=== PATIENT | female | born 1935 | race Caucasian/White ===

== ENCOUNTER → 2019-11-13 16:57 | Outpatient (CLI) | payer MEDICARE, SELFPAY ==
--- NOTE | 2019-11-13 17:14 | XR_ITS ---
PROCEDURE: XR KNEE LT 4V CLINICAL INDICATION: LT KNEE PAIN COMPARISON: No exams were available for comparison FINDINGS: No fracture or dislocation. No lytic or blastic change. There is normal mineralization. There are moderate to severe osteoarthritic changes involving the lateral compartment. Osteophytes are present at the intercondylar region of the distal femur and at the interspinous region of the proximal tibia and at the posterior patella. A small calcification is present superior to the patella and may be due to a loose body measuring 7 mm. On the lateral view there is a calcification along the posterior aspect of the knee joint which could be due to loose body or fabella. Other findings:None. IMPRESSION: Moderate to severe osteoarthritic changes with possible loose body in the suprapatellar region and in the posterior knee joint Dictated by: Phil Villela MD 11/13/2019 19:01 Phil Villela MD in [place] 11/13/2019 19:01
== END ==
PROVIDERS: PCP Physician Assistant; Visit Provider Physician Assistant
DX: M25.562 Pain in left knee (principal)
CPT/HCPCS: 73564

== ENCOUNTER → 2019-12-03 12:45 | Outpatient (CLI) | payer MEDICARE, SELFPAY ==
--- NOTE | 2019-12-03 12:57 | XR_ITS ---
PROCEDURE: XR FOOT WT BEARING LT 3V CLINICAL INDICATION: pain COMPARISON: CR FTR3 FOOT-RT-3 VIEWS from 12/11/2016 CR FTL3 FOOT-LT-3 VIEWS from 12/11/2016 FINDINGS: Moderate osteoarthritic changes are present at the 1st MTP joint with bony hypertrophy. No fracture or dislocation. There is some medial angulation of the distal aspect of the proximal phalanx of the 4th toe with osteoarthritis of the PIP joint. Overall no significant change. IMPRESSION: Osteoarthritis. No change with no acute finding Dictated by: Phil Villela MD 12/03/2019 15:49 Phil Villela MD in [facility] 12/03/2019 15:49
--- NOTE | 2019-12-03 12:57 | XR_ITS ---
PROCEDURE: XR FOOT WT BEARING RT 3V CLINICAL INDICATION: pain COMPARISON: CR FTR3 FOOT-RT-3 VIEWS from 12/11/2016 CR FTL3 FOOT-LT-3 VIEWS from 12/11/2016 FINDINGS: Severe osteoarthritis involves the 1st metatarsophalangeal joint with bony hypertrophy at the distal aspect of the 1st metatarsal. No fracture or dislocation. No lytic or blastic change. IMPRESSION: Severe osteoarthritis with bony hypertrophy 1st MTP joint Dictated by: Phil Villela MD 12/03/2019 15:48 Phil Villela MD in [facility] 12/03/2019 15:48
== END ==
PROVIDERS: PCP Physician Assistant; Visit Provider Podiatrist
DX: M79.672 Pain in left foot (principal); M79.671 Pain in right foot
CPT/HCPCS: 73630

== ENCOUNTER → 2019-12-23 10:01 | Outpatient (CLI) | payer MEDICARE, SELFPAY ==
--- NOTE | 2019-12-23 10:07 | XR_ITS ---
PROCEDURE: XR HIP RT 2-3V W/PELVIS CLINICAL INDICATION: right hip pain COMPARISON: CR XR HIP LT 2-3V W/PELVIS from 12/23/2019 FINDINGS: There are moderate to severe osteoarthritic changes of the right hip with loss of joint space, osteosclerosis, and osteophyte formation. No fracture or dislocation. There are degenerative changes in the lower lumbar spine. IMPRESSION: Osteoarthritis Dictated by: Phil Villela MD 12/23/2019 14:38 Phil Villela MD in [facility] 12/23/2019 14:38
--- NOTE | 2019-12-23 10:07 | XR_ITS ---
PROCEDURE: XR HIP LT 2-3V W/PELVIS CLINICAL INDICATION: left hip pain COMPARISON: No exams were available for comparison FINDINGS: There has been prior pinning of the left proximal femur with [address]. There is an old left femoral neck fracture. One of the pins appear to traverse the soft tissues posterior to the femoral neck as seen on the cross-table view. There are mild osteoarthritic changes of the left hip. IMPRESSION: Prior pinning of the left hip with an old femoral neck fracture. One of the pins lies posterior to the femoral neck. The proximal aspect of that pin is in the region of the greater trochanter and the distal aspect is in the region of the posterior aspect of the femoral head. Osteoarthritis of the left hip. Dictated by: Phil Villela MD 12/23/2019 14:28 Phil Villela MD in [facility] 12/23/2019 14:28
== END ==
PROVIDERS: PCP Physician Assistant; Visit Provider Orthopaedic Surgery
DX: M25.551 Pain in right hip (principal); M25.552 Pain in left hip
CPT/HCPCS: 73502

== ENCOUNTER → 2020-01-28 14:28 | Outpatient (POV) | payer MEDICARE, SELFPAY ==
[2020-01-28 14:46] VITALS: BP 155/88; PULSE 71; RESP 18; TEMP 36.4; O2SAT 98; BMI 19.8
--- NOTE | 2020-01-28 16:50 | HMH.PMCON ---
Assessment and Plan (1) Low back pain Status: Chronic Category: Medical Code(s): M54.5 - Low back pain (2) Lumbar radiculopathy Status: Chronic Category: Medical Code(s): M54.16 - Radiculopathy, lumbar region (3) Neck pain Status: Chronic Category: Medical Code(s): M54.2 - Cervicalgia (4) Mid back pain Status: Acute Category: Medical Code(s): M54.9 - Dorsalgia, unspecified - Assessment and plan all Dx Assessment and Plan for all problems:: I did discuss options with the patient and her daughter today. Unfortunately, the patient understands we will not be able to provide oral medication management at this time. I did discuss medication management with Dr. ALYCE Perea and he does not feel it is appropriate to provide oral medications and no interventional therapies at this time. The patient is not interested in interventional therapies. She does feel that she will follow up with her primary care provider and continue medications there at this time. She has been advised if she does decide that she would like to perform interventional therapy such as injections or implanted devices, she can contact us in the future. The patient and I specifically discussed risk factors for COVID19. These risks include, but are not limited to age greater than 60, heart or lung disease, diabetes, immunosuppression, and travel. We also discussed NSAIDs may worsen COVID19 infection or symptoms. Patient should not use NSAIDs to treat COVID19 signs or symptoms. Patient was also informed that any type of corticosteroid of any form (oral or injection) will decrease the patient's immune system response and may increase the likelihood of COVID19 infection [address] symptoms[address] Perez has reviewed this note and agrees with this plan of care. This note was dictated using voice recognition software and make contain errors or omissions. HPI - Data of Consult Patient: new to practice Consult date: 01/28/20 Requesting Physician: Zahra Cuellar APRN Primary Care Provider: Milton Lynn MD - Consult Narrative Reason for consult: Medication management History of present illness: Ms. Adames is a 84 year old female who presents today for consultation for chronic pain. She says that she has pain from her neck to her low back and into her legs. Patient has been managed with oral medications for some time. She says that she has recently changed primary care providers from [facility] to [facility]. Patient is being managed with hydrocodone, however, says that she can only receive the medication once a month rather than every 3 months. As result, she was referred to our clinic for possible medication management. She does rate her pain a 6 out of 10 today. She says she is not interested in injective therapy or and interventional therapies. Patient says she has tried and failed conservative therapies in the past which include physical therapy and home stretching. Oral medications are the only thing that have given her any pain relief to this point. CC: Zahra Cuellar APRN [facility] History I have reviewed the patient's past medical history: Yes Medical History: Reports:: Anxiety, Hyperlipidemia, Hypertension Denies:: Cancer, Diabetes Mellitus Type 1, Diabetes Mellitus Type 2, MRSA *Have you ever received a pneumonia vaccine?: Yes *Have you received a flu vaccine this season?: Yes Other Medical History: Reports: Arthritis Laterality Cases: Left: Arthroscopy Hip, Bilateral: Myringotomy (Ear Tubes) Other Surgeries: Yes: Amputation: No Fractures: No - *Social History Smoking Status: Never smoker Alcohol Intake: never *Occupational Status:: retired Housing: house Household Members: other *Travel in the last 8 weeks: None - Psychiatric History Pschychiatric History:: Reports:: Anxiety Family Hx:: Unable to obtain Review of Systems - Review of Systems Review of Systems General: No recent weight changes, no fever,
== END ==
PROVIDERS: PCP Emergency Medicine; Visit Provider Clinical Nurse Specialist Family Health
DX: M54.5 Low back pain (principal); M54.16 Radiculopathy, lumbar region; M54.2 Cervicalgia; M54.6 Pain in thoracic spine
CPT/HCPCS: 99202

== ENCOUNTER → 2020-02-27 16:17 | Outpatient (CLI) | payer MEDICARE, SELFPAY ==
[2020-02-27 17:00] LABS: Microscopic, Urine URINE MICROSCOPIC (MICROSCOPIC)
[2020-02-27 17:06] LABS: Appearance,Urine CLEAR (Clear); Bilirubin,Urine Negative (Negative); Blood, Urine 2+ (Negative); Color,Urine YELLOW (Yellow); Glucose,Urine (UA) Negative (Negative); Ketones,Urine Negative (Negative); Leukocyte Esterase,Urine TRACE (Negative); Nitrate,Urine Negative (Negative); Protein,Urine Negative (Negative); Specific Gravity, Urine 1.025 (1.005-1.030); Urobilinogen,Urine 0.2 EU/dl (0.2)
[2020-02-27 17:07] LABS: Chloride 108 mmol/L (98-107); Potassium 4.1 mmoL/L (3.5-5.1); Sodium 139 mmol/L (136-145)
[2020-02-27 17:08] LABS: Basophils # 0.1 K/mm3 (0-0.2); Basophils % 0.7 % (0.1-2.0); Eosinophils # 0.1 K/mm3 (0.0-0.4); Eosinophils % 1.4 % (0.1-12.0); Hematocrit 39.3 % (37.0-47.0); Hemoglobin 12.6 g/dL (12.2-16.2); Lymphocytes # 2.7 K/mm3 (0.7-4.5); Lymphocytes % 27.1 % (10-50); Mean Corpuscular HGB Conc 32.2 g/dL (31.8-35.4); Mean Corpuscular Hemoglobin 31.2 pg (27.0-31.2); Mean Corpuscular Volume 96.8 fl (81-99); Mean Platelet Volume 7.7 fl (7.4-10.4); Monocytes # 0.6 K/mm3 (0.1-1.0); Monocytes % 6.1 % (1.7-9.3); Neutrophils # 6.4 K/mm3 (1.8-7.8); Neutrophils % 64.8 % (37.0-80.0); Platelet Count 303 K/mm3 (142-424); Red Blood Count 4.06 M/mm3 (4.20-5.40); White Blood Count 9.9 K/mm3 (4.8-10.8)
[2020-02-27 17:09] LABS: Alanine Aminotransferase 16 U/L (12-78); Aspartate Amino Transferase 27 U/L (14-36); Blood Urea Nitrogen 26 mg/dl (7-17); Estimated Glomerular Filt Rate 69 ml/min (>60); GFR (African American) 83 ML/MIN (>60)
[2020-02-27 17:10] LABS: Albumin Level 3.7 g/dl (3.5-5.0); Albumin/Globulin Ratio 1.2 (1.1-1.8); Alkaline Phosphatase 76 U/L (38-126); Anion Gap 9.1 mEq/L (5-15); Bilirubin,Total 0.4 mg/dl (0.2-1.3); Calcium 9.2 mg/dl (8.4-10.2); Carbon Dioxide 26 mmol/L (22.0-30.0); Glucose 87 mg/dl (74-100); Total Protein,Serum 6.7 g/dl (6.3-8.2)
[2020-02-27 17:15] LABS: Amorphous Sediment,Urine Trace /lpf
[2020-02-27 17:25] LABS: Coronavirus 19 IgG Antibody Negative (Negative); Coronavirus 19 IgM Antibody Negative (Negative)
== END ==
PROVIDERS: PCP Physician Assistant; Visit Provider Surgery
DX: K41.90 Unilateral femoral hernia, without obstruction or gangrene, not specified as recurrent (principal); Z01.818 Encounter for other preprocedural examination; Z03.818 Encounter for observation for suspected exposure to other biological agents ruled out
CPT/HCPCS: 36415; 80053; 81001; 85025; 86328

== ENCOUNTER 2020-02-29 06:11 | Day surgery (SDC) | payer MEDICARE, SELFPAY ==
[2020-02-29] VITALS (17 sets, daily range): BP systolic 145–201; BP diastolic 63–86; PULSE 60–74; RESP 14–18; TEMP 36.4–43; O2SAT 93–98; BMI 19.8
--- NOTE | 2020-02-29 07:46 | HMH.ANESCL ---
[facility] Anesthesia Checklist - Patient Identification Patient Identification: Arm Band, Verbal (Name & ) - Structural Data Admitted From: Home Planned Operative Procedure/s: Left open femoral hernia repair Consent for Planned Operative Procedure(s) Verified: Yes Verified Documents: Surgical Consent, History and Physical - NPO Status Verified Time NPO: 22:00 - Chart Verification Results Verified: CBC, BMP, UA - Additional verifications Patient : No Anesthesia Reactions: No Hx Blood Transfusions: No Blood Transfusion Reaction: No - Airway Assessment C-Spine Mobility Assessed: Yes (MP 1, micrognathia, crowns, limited neck ROM, TMD 3) TMJ Mobility Assessed: Yes Dentition: Good Dentition - Neurological Assessment Level of Consciousness: Awake, Alert, Appropriate, Follows Commands Hx Seizures: No Numbness or tingling in extremities: No - Anesthesia Plan Anesthesia Risk discussed: Yes Anesthesia Plan: Verified ASA Class: II Anesthesia Type: General [facility] History I have reviewed the patient's past medical history: Yes Medical History: Reports:: Anxiety, Hyperlipidemia, Hypertension Denies:: Cancer, Diabetes Mellitus Type 1, Diabetes Mellitus Type 2, Internal Pacemaker, MRSA, Seizures *Have you ever received a pneumonia vaccine?: No *Have you received a flu vaccine this season?: No Other Medical History: Reports: Arthritis. Denies: Blood Transfusion Reaction Anesthesia experience/problems:: None Laterality Cases: Left: Arthroscopy Hip, Bilateral: Myringotomy (Ear Tubes) Other Surgeries: Yes: . No: Pacemaker Amputation: No Fractures: No - *Social History Last grade of school completed: Some college Smoking Status: Current every day smoker Tobacco Type: cigarettes # Packs/Day (cigarettes): 1 Alcohol Intake: never Substance Use Type: denies use *Occupational Status:: retired Housing: house Household Members: spouse *Travel in the last 8 weeks: None - Psychiatric History Pschychiatric History:: Reports:: Anxiety Family Hx:: Unable to obtain
--- NOTE | 2020-02-29 08:19 | P.OP_ITS ---
Date of procedure: 02/29/20 Pre-op Diagnosis:: Left femoral hernia Post-op Diagnosis:: Direct left inguinal hernia with inferior/medial projection Procedure performed:: Open left inguinal hernia repair Surgeon:: Matias Ling MD CORPORATE LEGAL ASSISTANT:: Romario Capps Anesthesia: GETA Estimated blood loss (mL): 10 Operative findings:: Large complex direct defect with significant inferior/medial projection's No definitive femoral defect Operative note:: After informed consent was obtained the patient was taken to the operating room and placed in the supine position. General anesthesia was induced and her abdomen/groin was prepped and draped in a sterile fashion. After infiltration local anesthetic an oblique left groin incision was made. The deeper subcutaneous tissue was dissected sharply through Trev's fascia to the level of the external aponeurosis. Careful evaluation over the margin of the inguinal ligament revealed no definitive femoral defect; however, a defect that had inferior and medial projection through the external ring was noted. The external aponeurosis was sharply opened to the level of the external ring. The patient's round ligament was essentially obliterated. A large complex direct defect was encountered. An extra-large PerFix plug was secured in position within the defect with 2-0 Ethibond. The PerFix overlay was then secured to the shelving edge inferiorly and fascial margin superiorly utilizing 2-0 Ethibond. The external aponeurosis was reapproximated with running Vicryl. Trev's fas nel was reapproximated in a similar manner. Skin was then closed with 4-0 Monocryl in a running subcuticular fashion. Steri-Strips were applied. The patient's anesthetic agents were reversed and she was extubated prior to transfer to recovery. Condition: stable Disposition: PACU Specimens:: None Complications:: No immediate
--- NOTE | 2020-02-29 08:29 | P.PN_ITS ---
[facility] Anesthesia Record Part I Intake, IV Amount: 500 Estimated blood loss (mL): 5 Urine output (mL): 75 Blood Products used (#): none Blood Pressure: 190/80 SaO2: 95 Pulse Rate: 74 Respiratory Rate: 14 Temperature: 97.6 F Patient is:: Awake, Stable Stable to PACU at:: 08:26
--- NOTE | 2020-02-29 09:43 | ECG_ITS ---
APPROVED REPORT Exam: Resting ECG HR:60 bpm ECG Measurements Heart Rate 60 AXES NM 156 P 71 QRSd 76 QRS -49 QT 428 T 45 QTc 428 Conclusion Normal sinus rhythm Left anterior fascicular block Abnormal ECG Electronically signed by : Himanshu Anthony, 03/01/2020 17:29:57
--- NOTE | 2020-02-29 10:35 | PC.NURSE ---
Medication administered per Jorge order to give 10mg Hydralazine IV
--- NOTE | 2020-02-29 10:39 | PC.NURSE ---
Pt complaing of chest pain, MAURI Patel aware, EKG ordered
--- NOTE | 2020-02-29 11:19 | PC.NURSE ---
EKG completed, MAURI Patel states EKG is clear
--- NOTE | 2020-02-29 11:20 | PC.NURSE ---
Pt states that chest pain has subsided
--- NOTE | 2020-02-29 11:46 | HMH.ANESII ---
[facility] Anesthesia Record Part II Discharge Time: 08:56 Destination: Surgical Day Care (OP Surgery) PACU nurse assessment reviewed?: Yes Patient Condition:: Fair Anesthesia Complications:: None Swallowing reflex intact?: Yes Cyanosis?: No Blood Pressure: 201/80 Pulse Rate: 60 Temperature: 97.6 F Mental Status: Alert & Oriented Pain level:: 0 Nausea and/or vomitting:: None Intake, IV Amount: 0
[2020-02-29 12:54] LABS: Microscopic,Cath URINE MICROSCOPIC (MICROSCOPIC)
[2020-02-29 15:32] LABS: Appearance,Urine/Cath CLEAR (Clear); Bilirubin,Cath Negative (Negative); Blood, Urine/Cath 1+ (Negative); Color,Urine/Cath YELLOW (Yellow); Glucose,Urine/Cath (UA) Negative (Negative); Ketones,Urine/Cath Negative (Negative); Leukocyte Esterase,Cath Negative (Negative); Nitrate,Cath Negative (Negative); PH,Urine/Cath 6.5 (5.0-8.5); Protein,Urine/Cath Negative (Negative); Specific Gravity, Urine/Cath 1.015 (1.005-1.030); Urobilinogen,Cath 0.2 EU/dl (0.2)
[2020-02-29 16:13] LABS: Squamous Epithelial Ur./Cath Occasional #/hpf (0-5)
== END 2020-02-29 10:55 | disposition home or self-care (01) ==
LOC: OR 06:12
PROVIDERS: PCP Physician Assistant; Visit Provider Surgery
PROC: (CPT 49550; principal; 2020-02-29 07:30)
DX: K41.90 Unilateral femoral hernia, without obstruction or gangrene, not specified as recurrent (principal); F41.9 Anxiety disorder, unspecified; E78.5 Hyperlipidemia, unspecified; I10 Essential (primary) hypertension; M19.90 Unspecified osteoarthritis, unspecified site; Z72.0 Tobacco use; Z88.6 Allergy status to analgesic agent; Z79.82 Long term (current) use of aspirin; Z79.899 Other long term (current) drug therapy
CPT/HCPCS: 49550; 81001; 93005; 96374; J2405; J2710

== ENCOUNTER 2023-03-24 13:40 | Emergency (ER) | payer MEDICARE, SELFPAY ==
[2023-03-24 13:42] VITALS: BP 141/55; PULSE 72; RESP 20; TEMP 36.7; O2SAT 95; BMI 19.5
--- NOTE | 2023-03-24 14:38 | CT_ITS ---
PROCEDURE INFORMATION: Exam: CT Abdomen And Pelvis With Contrast Exam date and time: 03/24/2023 3:15 PM Age: 88 years old Clinical indication: Other: Pain and distention, ascites per US; Additional info: Ascites bedside US, 3 weeks abd pain, distention TECHNIQUE: Imaging protocol: Computed tomography of the abdomen and pelvis with contrast. Radiation optimization: All CT scans at this facility use at least one of these dose optimization techniques: automated exposure control; mA and/or kV adjustment per patient size (includes targeted exams where dose is matched to clinical indication); or iterative reconstruction. Contrast material: ISOVUE; Contrast volume: 75 ml; Contrast route: IV; COMPARISON: CR XR HIP LT 2-3V W/PELVIS 12/23/2019 10:22 AM FINDINGS: Lungs: Included lung bases demonstrate no consolidation. Subsegmental atelectasis in the left lung base. Heart: Mild left atrial enlargement. No pericardial effusion. Mild coronary artery calcifications. Diaphragm: Small sliding-type hiatal hernia. Mild lower circumferential esophageal wall thickening. Liver: Liver is normal. No lesions. Gallbladder and bile ducts: Gallbladder is normal. No calcified stones. No ductal dilatation. Pancreas: Moderately atrophic pancreas. Two 5 mm hypodensities at the pancreatic head, most likely small cystic lesions. No ductal dilatation. Spleen: Spleen is normal. Adrenal glands: No adrenal mass. Kidneys and ureters: Left renal cysts measuring as large as 1.1 cm, no follow-up imaging indicated. No hydronephrosis. No renal stones. Stomach and bowel: No bowel obstruction. Stomach is nondistended with apparent wall thickening. Sigmoid colonic diverticulosis. No obvious diverticulitis given extensive omental caking and ascites. Colon is nondistended with mild generalized wall thickening. Appendix: Not definitely seen. Intraperitoneal space: Extensive omental caking. Areas of peritoneal nodularity, thickening, and enhancement. Moderate to large volume ascites. No free air. Vasculature: Fairly diffuse aortoiliac atherosclerotic disease. No AAA. Lymph nodes: Enlarged periaortic lymph node measuring 1.5 cm in short axis dimension. Right lower paraesophageal 1 cm lymph node. Enlarged 1.2 cm left inguinal lymph node. Few prominent subcentimeter right cardiophrenic lymph nodes. Urinary bladder: Urinary bladder is unremarkable for degree of distention. Reproductive: Right ovary appears mildly enlarged although suboptimally evaluated with approximately 1 cm cystic lesion. Uterus is grossly unremarkable. Bones/joints: Osteopenia. No acute fracture. Thoracolumbar levoscoliosis. Multilevel degenerative changes of the included spine. Postsurgical changes of the proximal left femur. Advanced degenerative changes of the right hip. Soft tissues: Anasarca. IMPRESSION: 1. Extensive omental caking and peritoneal soft tissue implants most consistent with metastatic disease. 2. Moderate to large volume ascites, possible malignant ascites, infectious/inflammatory component not excluded. 3. No bowel obstruction. Colonic wall thickening which may be secondary to hypoproteinemia and/or non-specific colitis, no obvious mass although evaluation is limited and mass not excluded. 4. Stomach is nondistended with apparent wall thickening. Small hiatal hernia with lower esophageal wall thickening. Esophageal and stomach wall thickening may be secondary to degree of distention or esophagitis/gastritis, lesions can not be excluded, endoscopy can be obtained as clinically indicated. 5. Right ovary appears mildly enlarged although suboptimally evaluated with 1 cm cystic lesion, can correlate with pelvic ultrasound as indicated. 6. Adenopathy as above. 7. Other chronic and incidental findings as detailed above. COMMENTS: Consistent with the [employer]'s Incidental Findings Committee white paper (J Am Josselin Radiol 2018): Any incidental renal lesion less than 1 cm or classified as too small to characterize, or any incidental cystic renal lesion characterized as simple-appearing, is likely benign. No follow-up imaging is recommended for these lesions per consensus recommendations based on imaging criteria. THIS REPORT CONTAINS FINDINGS THAT MAY BE CRITICAL TO PATIENT CARE. The findings were verbally communicated via telephone conference at 4:25 PM EST on 03/24/[address] Alvarez. The findings were acknowledged and understood.
--- NOTE | 2023-03-24 14:39 | ED_ITS ---
Discharge Plan Disposition Patient Disposition: Home, Self-Care Prescriptions Prescriptions: New ondansetron 4 mg tablet,disintegrating 4 mg PO Q8H PRN (Reason: nausea and vomiting) 4 Days Qty: 21 0RF oxycodone 5 mg tablet 5 mg PO TID PRN (Reason: pain) Qty: 12 0RF Rx Instructions: Take only for severe breakthrough pain refractory to home regimen. No Action zolpidem 10 mg tablet 10 mg PO DAILY pantoprazole 40 mg tablet,delayed release (DR/EC) 1 tab PO DAILY simvastatin 20 mg tablet 20 mg PO DAILY hydroxyzine HCl 25 mg tablet 25 mg PO DAILY aspirin [Adult Aspirin Regimen] 81 mg tablet,delayed release (DR/EC) 81 mg PO DAILY buspirone 10 mg tablet 10 mg PO BID lisinopril 10 mg tablet 10 mg PO DAILY cholecalciferol (vitamin D3) 50 mcg (2,000 unit) capsule 50 mcg PO DAILY hydrocodone-acetaminophen 1 EACH tablet 1 tab PO TID Referrals Follow up/Referrals: Olivier Hopkins MD [Primary Care Provider] - See instructions Milton Harper MD [Staff Physician] - See instructions Activity Restrictions/Add. Instructions Additional Instructions/Restrictions: At this time is felt you are safe to be discharged home. If new or worsening symptoms do not hesitate to return the emergency department. Please take 650 mg of Tylenol with your Lortab as you are Lortab was prescribed. Please take the oxycodone that was prescribed only for severe breakthrough pain. Please follow- up with your family doctor as soon as you are able and call and schedule an appointment with Dr. Henson as soon as you are able for further workup and goals of care. Clinical Impressions Clinical Impression: Abdominal pain, Ascites, Metastatic disease Instructions Patient Instructions: DI for Acute Abdominal Pain Discharge ED Provider: Gabino Hsu General Adult HPI <Gabino Hsu MD - Last Filed: 03/24/23 14:43> General Chief complaint: Abdominal Pain Stated complaint: lower abd pain Time Seen by Provider: 03/24/23 14:32 Mode of Arrival: Wheelchair Source of Information: Patient Limitations: No Limitations Description of Symptoms (Recalled from ER Triage Doc. by RN): pt states she has had belly pain for about two weeks then it began to get worse on saturday/saturday. pt states she is nauseated but no vomiting and is belching a lot History of Present Illness HPI narrative: Patient is an 88-year-old female with a history of breast cancer treated with lumpectomy in 2021 presents today with abdominal pain and distention over the last 3 weeks. Denies any urinary symptoms burning frequency urgency or changes in bowel movements etc. Daughter who is with her states that her pain is gone to the point where she is having significant pain in her lower extremities with any type of walking and has a decreased p.o. intake as well. Related Data Home Medications Medication Instructions Recorded Confirmed aspirin 81 mg tablet,delayed 81 mg PO DAILY Supplement 12/03/19 03/16/20 release (Adult Aspirin Regimen) hydroxyzine HCl 25 mg tablet 25 mg PO DAILY hives 12/03/19 03/16/20 pantoprazole 40 mg tablet,delayed 1 tab PO DAILY stomach 12/03/19 03/16/20 release simvastatin 20 mg tablet 20 mg PO DAILY Cholesterol 12/03/19 03/16/20 zolpidem 10 mg tablet 10 mg PO DAILY sleep 12/03/19 03/16/20 buspirone 10 mg tablet 10 mg PO BID . 01/14/20 03/16/20 cholecalciferol (vitamin D3) 50 50 mcg PO DAILY Supplement 02/10/20 03/16/20 mcg (2,000 unit) capsule lisinopril 10 mg tablet 10 mg PO DAILY bp 02/10/20 03/16/20 hydrocodone 5 mg-acetaminophen 325 1 tab PO TID Pain 02/29/20 03/16/20 mg tablet Previous Rx's Medication Instructions Recorded ondansetron 4 mg disintegrating 4 mg PO Q8H PRN nausea and 03/24/23 tablet vomiting 4 days #21 tabs oxycodone 5 mg tablet 5 mg PO TID PRN pain #12 tabs 03/24/23 Allergies Allergy/AdvReac Type Severity Reaction Status Date / Time codeine [CODEINE] Allergy Unknown Verified 03/16/20 10:27 [facility] <Gabino Hsu MD - Last Filed: 03/24/23 14:43> [facility] Disclaimer: The information contained in this section may have been updated after the patient was seen, as this information can be updated by other users. Social History Smoking Status: Current every day smoker tobacco type: cigarettes packs per day: 1 alcohol intake: never substance use type: denies use current occupational status: retired Travel in the last 8 weeks: None household members: spouse housing: house current occupational exposures/hazards: No caffeine: No <Gabino Hsu MD - Last Filed: 03/24/23 14:43> ROS Obtained: Yes All systems reviewed & no additional complaints except as documented Physical Exam <Gabino Hsu MD - Last Filed: 03/24/23 14:43> General General appearance: alert and other Respiratory Respiratory exam: Present normal lung sounds bilaterally Cardiovascular Cardiovascular exam: Present regular rate Abdominal Exam Abdominal exam: Present soft and distention (Positive fluid wave on patient's abdomen with significant distention) Neurological Exam Neurological exam: Present alert Medical Decision Making <Gabino Hsu MD - Last Filed: 03/24/23 14:43> Navi Inquiry Pt receiving controlled substance: No Vital Signs: 03/24/23 13:42 Temperature 98.1 F Temperature Source Oral Pulse Rate [Right Radial] 72 Respiratory Rate 20 Blood Pressure [Right Arm] 141/55 H Blood Pressure Mean [Right Arm] 83 02 Sat by Pulse Oximetry 95 Oxygen Delivery Method Room Air Lab Data Lab Results 03/24/23 14:20: WBC 9.4, RBC 3.78 L, Hgb 11.6 L, Hct 34.9 L, MCV 92.4, MCH 30.8, MCHC 33.3, RDW 12.8, Plt Count 309, MPV 8.4, Neut % (Auto) 81.8 H, Lymph % (Auto) 10.6, Crisp % (Auto) 6.6, Eos % (Auto) 0.4, Baso % (Auto) 0.6, Neut # (Auto) 7.7, Lymph # (Auto) 1.0, Crisp # (Auto) 0.6, Eos # (Auto) 0.0, Baso # (Auto) 0.1, PT 11.3, INR 1.05, Sodium 141, Potassium 3.6, Chloride 109 H, Carbon Dioxide 28, Anion Gap 7.6, BUN 32 H, Creatinine 0.80, Estimated Creat Clear 29, Estimated GFR 68, Est GFR ( Amer) 82, Glucose 114 H, Calcium 8.9, Total Bilirubin 0.4, AST 32, ALT 19, Alkaline Phosphatase 82, Total Protein 6.3, Albumin 3.1 L, Globulin 3.2, Albumin/Globulin Ratio 1.0 L, Lipase 26 03/24/23 15:00: Lactate 1.0 03/24/23 16:05: Urine Color Yellow, Urine Appearance Clear, Urine pH 6.0, Ur Specific [place] 1.020, Urine Protein Negative, Urine Glucose (UA) Negative, Urine Ketones Trace, Urine Blood 1+, Urine Nitrate Negative, Urine Bilirubin 1+ A, Urine Urobilinogen 1.0, Ur Leukocyte Esterase Negative, Urine RBC 3-5, Urine WBC Occasional, Ur Squamous Epith Cells Occasional, Urine Bacteria None 03/24/23 14:20 03/24/23 14:20 Orders (Tests/Meds): ED MEDICATIONS Discontinued Medications Generic Name Dose Route Start Last Admin Trade Name Brendenq PRN Reason Stop Dose Admin Acetaminophen 1,000 mg 03/24/23 15:02 03/24/23 15:07 Acetaminophen 1,000mg/100ml Vial IV 03/24/23 15:03 1,000 mg ONCE ONE Administration Hydromorphone HCl 0.5 mg 03/24/23 16:38 03/24/23 16:41 Hydromorphone 2mg/Ml Syringe IV 03/24/23 16:39 0.5 mg ONCE ONE Administration Lactated Ringer's 500 mls @ 999 mls/hr 03/24/23 14:45 03/24/23 14:51 Lactated Ringer's 1000 Ml Bag IV 03/24/23 15:15 999 mls/hr .Q31M MASOUD Administration Iopamidol 75 ml 03/24/23 15:15 03/24/23 15:16 Iopamidol-370 (76%);100ml Bottle IV 03/24/23 15:16 75 ml ONCE ONE Administration Morphine Sulfate 2 mg 03/24/23 14:38 03/24/23 15:01 Morphine 4mg/Ml Syringe IV 03/24/23 14:39 Not Given ONCE ONE Ondansetron HCl 4 mg 03/24/23 14:38 03/24/23 14:50 Ondansetron 4mg/2ml Vial IV 03/24/23 14:39 4 mg ONCE ONE Administration Sodium Chloride 10 ml 03/24/23 15:15 03/24/23 15:16 Sodium Chloride 0.9% 10ml Syr (Rad Only) IV 03/24/23 15:16 10 ml ONCE ONE Administration ORDERS Category Date Time Status CT abdomen pelvis w con Stat Cat Scan 03/24/23 14:38 Completed CBC w/Auto Diff [Complete Blood Count Auto Diff] Stat Lab 03/24/23 14:20 Completed CMP [Comprehensive Metabolic Panel] Stat Lab 03/24/23 14:20 Completed Lactic Acid Stat Lab 03/24/23 15:00 Completed Lipase Stat Lab 03/24/23 14:20 Completed PT INR [Prothrombin Time INR] Stat Lab 03/24/23 14:20 Completed UA [Urinalysis and Microscopic] Stat Lab 03/24/23 16:05 Completed Medical Decision Narrative: Patient is an 88-year-old female presented today with abdominal distention and pain and positive fluid wave I did a limited bedside ultrasound which does not fact show ascites this is concerning for malignancy in this particular patient. Other differential diagnoses would include decompensated cirrhosis, heart failure etc. Will get a CT scan with contrast for further evaluation. Care with transition to Dr. Jason Alvarez to follow-up on this initial workup. <Selvin Alvarez MD - Last Filed: 03/24/23 17:13> Vital Signs: 03/24/23 13:42 Temperature 98.1 F Temperature Source Oral Pulse Rate [Right Radial] 72 Respiratory Rate 20 Blood Pressure [Right Arm] 141/55 H Blood Pressure Mean [Right Arm] 83 02 Sat by Pulse Oximetry 95 Oxygen Delivery Method Room Air Lab Data Lab Results 03/24/23 14:20: WBC 9.4, RBC 3.78 L, Hgb 11.6 L, Hct 34.9 L, MCV 92.4, MCH 30.8, MCHC 33.3, RDW 12.8, Plt Count 309, MPV 8.4, Neut % (Auto) 81.8 H, Lymph % (Auto) 10.6, Crisp % (Auto) 6.6, Eos % (Auto) 0.4, Baso % (Auto) 0.6, Neut # (Auto) 7.7, Lymph # (Auto) 1.0, Crisp # (Auto) 0.6, Eos # (Auto) 0.0, Baso # (Auto) 0.1, PT 11.3, INR 1.05, Sodium 141, Potassium 3.6, Chloride 109 H, Carbon Dioxide 28, Anion Gap 7.6, BUN 32 H, Creatinine 0.80, Estimated Creat Clear 29, Estimated GFR 68, Est GFR ( Amer) 82, Glucose 114 H, Calcium 8.9, Total Bilirubin 0.4, AST 32, ALT 19, Alkaline Phosphatase 82, Total Protein 6.3, Alb umin 3.1 L, Globulin 3.2, Albumin/Globulin Ratio 1.0 L, Lipase 26 03/24/23 15:00: Lactate 1.0 03/24/23 16:05: Urine Color Yellow, Urine Appearance Clear, Urine pH 6.0, Ur Specific [place] 1.020, Urine Protein Negative, Urine Glucose (UA) Negative, Urine Ketones Trace, Urine Blood 1+, Urine Nitrate Negative, Urine Bilirubin 1+ A, Urine Urobilinogen 1.0, Ur Leukocyte Esterase Negative, Urine RBC 3-5, Urine WBC Occasional, Ur Squamous Epith Cells Occasional, Urine Bacteria None Orders (Tests/Meds): ED MEDICATIONS Discontinued Medications Generic Name Dose Route Start Last Admin Trade Name Freq PRN Reason Stop Dose Admin Acetaminophen 1,000 mg 03/24/23 15:02 03/24/23 15:07 Acetaminophen 1,000mg/100ml Vial IV 03/24/23 15:03 1,000 mg ONCE ONE Administration Hydromorphone HCl 0.5 mg 03/24/23 16:38 03/24/23 16:41 Hydromorphone 2mg/Ml Syringe IV 03/24/23 16:39 0.5 mg ONCE ONE Administration Lactated Ringer's 500 mls @ 999 mls/hr 03/24/23 14:45 03/24/23 14:51 Lactated Ringer's 1000 Ml Bag IV 03/24/23 15:15 999 mls/hr .Q31M MASOUD Administration Iopamidol 75 ml 03/24/23 15:15 03/24/23 15:16 Iopamidol-370 (76%);100ml Bottle IV 03/24/23 15:16 75 ml ONCE ONE Administration Morphine Sulfate 2 mg 03/24/23 14:38 03/24/23 15:01 Morphine 4mg/Ml Syringe IV 03/24/23 14:39 Not Given ONCE ONE Ondansetron HCl 4 mg 03/24/23 14:38 03/24/23 14:50 Ondansetron 4mg/2ml Vial IV 03/24/23 14:39 4 mg ONCE ONE Administration Sodium Chloride 10 ml 03/24/23 15:15 03/24/23 15:16 Sodium Chloride 0.9% 10ml Syr (Rad Only) IV 03/24/23 15:16 10 ml ONCE ONE Administration ORDERS Category Date Time Status CT abdomen pelvis w con Stat Cat Scan 03/24/23 14:38 Completed CBC w/Auto Diff [Complete Blood Count Auto Diff] Stat Lab 03/24/23 14:20 Completed CMP [Comprehensive Metabolic Panel] Stat Lab 03/24/23 14:20 Completed Lactic Acid Stat Lab 03/24/23 15:00 Completed Lipase Stat Lab 03/24/23 14:20 Completed PT INR [Prothrombin Time INR] Stat Lab 03/24/23 14:20 Completed UA [Urinalysis and Microscopic] Stat Lab 03/24/23 16:05 Completed Medical Decision Narrative: Patient is an 88-year-old female presented today with abdominal distention and pain and positive fluid wave I did a limited bedside ultrasound which does not fact show ascites this is concerning for malignancy in this particular patient. Other differential diagnoses would include decompensated cirrhosis, heart failure etc. Will get a CT scan with contrast for further evaluation. Care with transition to Dr. Jason Alvarez to follow-up on this initial workup. Workup reviewed by me, hematologic labs are nonactionable, urinalysis in terpreted by me and not consistent with infection. CT imaging remarkable for extensive omental caking, peritoneal soft tissue implants consistent with metastatic disease, moderate to large volume ascites, no bowel obstruction, colonic wall thickening is present, wall thickening of the stomach, right ovary Avelino is mildly enlarged and there is associated abdominal adenopathy. Given this constellation of findings and history of previous cancer I have concern for diffusely metastatic malignancy. Upon repeat evaluation patient was in pain so 0.5 mg of Dilaudid was administered. Patient underwent p.o. trial and was successful. Extensive discussion was had at bedside, patient be discharged with 7-day course of antiemetic and oxycodone for breakthrough pain and will follow- up with PCP as well as oncology after discussing their goals of care at home as soon as they are able. Critical Care <Gabino Hsu MD - Last Filed: 03/24/23 14:43> Critical Care Time Critical Care Time: No
[2023-03-24 14:46] LABS: Basophils # 0.1 K/mm3 (0-0.2); Basophils % 0.6 % (0.1-2.0); Eosinophils % 0.4 % (0.1-12.0); Hematocrit 34.9 % (37.0-47.0); Hemoglobin 11.6 g/dL (12.2-16.2); Lymphocytes % 10.6 % (10-50); Mean Corpuscular HGB Conc 33.3 g/dL (31.8-35.4); Mean Corpuscular Hemoglobin 30.8 pg (27.0-31.2); Mean Corpuscular Volume 92.4 fl (81-99); Mean Platelet Volume 8.4 fl (7.4-10.4); Monocytes # 0.6 K/mm3 (0.1-1.0); Monocytes % 6.6 % (1.7-9.3); Neutrophils # 7.7 K/mm3 (1.8-7.8); Neutrophils % 81.8 % (37.0-80.0); Platelet Count 309 K/mm3 (142-424); Red Blood Count 3.78 M/mm3 (4.20-5.40); Red Cell Distribution Width 12.8 % (11.5-17.5); White Blood Count 9.4 K/mm3 (4.8-10.8)
[2023-03-24 14:49] LABS: Chloride 109 mmol/L (98-107)
[2023-03-24 14:50] LABS: Potassium 3.6 mmoL/L (3.5-5.1); Sodium 141 mmol/L (136-145)
[2023-03-24] MEDS: ONDANSETRON 4MG/2ML VIAL 4 MG IV (14:50)
[2023-03-24] MEDS: LACTATED RINGERS 1000ML 500 ML 999 ML IV (14:51)
[2023-03-24 14:52] LABS: Alanine Aminotransferase 19 U/L (12-78); Alkaline Phosphatase 82 U/L (38-126); Anion Gap 7.6 mEq/L (5-15); Aspartate Amino Transferase 32 U/L (14-36); Bilirubin,Total 0.4 mg/dl (0.2-1.3); Blood Urea Nitrogen 32 mg/dl (7-17); Carbon Dioxide 28 mmol/L (22.0-30.0); Creatinine Clearance Estimated 29 mL/min (50-200); Estimated Glomerular Filt Rate 68 ml/min (>60); GFR (African American) 82 ML/MIN (>60); Lipase 26 U/L (23-300)
[2023-03-24 14:53] LABS: Albumin Level 3.1 g/dl (3.5-5.0); Calcium 8.9 mg/dl (8.4-10.2); Globulin 3.2 g/dL (1.3-3.2); Glucose 114 mg/dl (74-100); INR 1.05 (0.9-1.1); Prothrombin Time 11.3 seconds (10.1-12.5); Total Protein,Serum 6.3 g/dl (6.3-8.2)
[2023-03-24] MEDS: ACETAMINOPHEN 1,000MG/100ML VIAL 1000 MG IV (15:07)
[2023-03-24] MEDS: SODIUM CHLORIDE 0.9% 10ML SYR (RAD ONLY) 10 ML IV (15:16)
[2023-03-24] MEDS: IOPAMIDOL-370 (76%);100ML BOTTLE 75 ML IV (15:16)
[2023-03-24 16:14] LABS: Microscopic, Urine URINE MICROSCOPIC (MICROSCOPIC)
[2023-03-24 16:20] LABS: Appearance,Urine CLEAR (Clear); Blood, Urine 1+ (Negative); Color,Urine YELLOW (Yellow); Glucose,Urine (UA) Negative (Negative); Ketones,Urine TRACE (Negative); Leukocyte Esterase,Urine Negative (Negative); Nitrate,Urine Negative (Negative); Protein,Urine Negative (Negative)
[2023-03-24 16:23] LABS: Bilirubin,Urine 1+ (Negative)
--- NOTE | 2023-03-24 16:23 | PC.NURSE ---
DR LUX SPEAKING WITH [facility]
[2023-03-24 16:35] LABS: Squamous Epithelial Cell,Urine Occasional #/hpf (0-5); WBC,Urine Occasional #/hpf (0-3)
[2023-03-24] MEDS: HYDROMORPHONE 2MG/ML SYRINGE 0.5 MG IV (16:41)
--- NOTE | 2023-03-24 17:11 | PC.NURSE ---
ER MD at bedside discussing plan of care of with patient and family
[2023-03-24 17:20] VITALS: BP 161/65; PULSE 70; RESP 20; TEMP 36.7; O2SAT 95
== END 2023-03-24 17:33 | disposition home or self-care (01) ==
PROVIDERS: Emergency Provider Student in an Organized Health Care Education/Training Program; PCP Emergency Medicine
DX: R10.0 Acute abdomen (principal); R18.8 Other ascites; R14.0 Abdominal distension (gaseous); C79.9 Secondary malignant neoplasm of unspecified site; Z85.3 Personal history of malignant neoplasm of breast
CPT/HCPCS: 74177; 80053; 81001; 83605; 83690; 85025; 85610; 96374; 96375; 99285; J0131; J2405; Q9967